=== PATIENT | female | born 1985 | race Caucasian/White ===

== ENCOUNTER 2016-07-29 18:00 | Emergency (ER) | payer SELFPAY ==
--- NOTE | 2016-07-29 18:27 | EDPHY ---
H & P Stated Complaint: RLQ Pain- + preg test-Hx ectopic preg. Time Seen by Provider: 07/29/16 18:10 HPI/ROS: Chief complaint: Abdominal pain HPI: 30-year-old status post ectopic x1 about 2 years ago started having right for pelvic pain earlier today. She took a test which was positive. Her last menstrual. Was 13 months ago. This is 1 her youngest child was born. She is breast feeding. No vaginal bleeding or discharge. No nausea or vomiting or diarrhea. Pain at worst is about a 7/10 down to a 4 on 10 now. She states the pain feels like when she had her ectopic on the left hand side. No fevers or chills. ROS: 10 point Review of Systems is negative except as noted in the HPI. Past medical history: Ectopic Physical exam: Gen: Awake, Alert, No Distress HEENT: Nose: no rhinorrhea Eyes: PERRLA, EOMI Mouth: Moist mucosa Neck: Supple, no JVD Chest: nontender, lungs clear to auscultation Heart: S1, S2 normal, no murmur Abd: mild right adnexal tenderness without guarding. No pain at McBurney's point. No rebound. No other abdominal tenderness. Abdomen is soft, no guarding Back: no CVA tenderness, no midline tenderness Ext: no edema, non-tender Skin: no rash Neuro: CN II-XII intact, Sensation grossly intact, Strength 5/5 in bilateral upper and lower extremities - Personal History LMP (Females 10-55): Current Tetanus/Diphtheria Vaccine: Yes Tetanus Vaccine Date: 2015 - Medical/Surgical History Hx Asthma: No Hx Chronic Respiratory Disease: No Hx Diabetes: No Hx Cardiac Disease: No Hx Renal Disease: No Hx Cirrhosis: No Hx Alcoholism: No Hx HIV/AIDS: No Hx Splenectomy or Spleen Trauma: No Other PMH: DNC TONSILECTOMY SHOULDER SURGERY/DEPRESSION/MIGRAINES/HTN/ANEMIA. Left ectopic 2013- - Social History Smoking Status: Never smoked Constitutional: Initial Vital Signs Temperature (C) 36.9 C 07/29/16 18:06 Heart Rate 84 07/29/16 18:06 Respiratory Rate 16 07/29/16 18:06 Blood Pressure 126/85 H 07/29/16 18:06 O2 Sat (%) 99 07/29/16 18:06 O2 Delivery Mode Room Air Allergies/Adverse Reactions: No Known Allergies Allergy (Verified 07/29/16 18:08) Home Medications: Medication Instructions Recorded NK [No Known Home Meds] 07/29/16 Medical Decision Making - Diagnostics Imaging: Pelvic ultrasound, interpreted by Dr. Btets. There is an IUP demonstrated by a double decidual sac. There is no pole. There is no hemorrhage. This is consistent with 5 week 2 day . This gives a estimated due date of . ED Course/Re-evaluation: Patient with right lower abdominal pain. She has no tenderness at McBurney's point. Abdomen is soft and quite benign. Positive test with an ultrasound that is consistent with an early IUP. Patient does not have rebound or guarding or findings suggestive of an acute appendicitis. And she will be instructed to return emergency department 12-24 hours if symptoms have not improved. Otherwise she will follow up with her OBGYN. - Data Points Laboratory Results: Laboratory Results 07/29/16 18:20 07/29/16 07/29/16 07/29/16 18:20 18:20 18:20 WBC 11.45 10^3/uL H 10^3/uL (3.80-9.50) RBC 4.94 10^6/uL 10^6/uL (4.18-5.33) Hgb 12.8 g/dL g/dL (12.6-16.3) Hct 39.7 % % (38.0-47.0) MCV 80.4 fL L fL (81.5-99.8) MCH 25.9 pg L pg (27.9-34.1) MCHC 32.2 g/dL L g/dL (32.4-36.7) RDW 13.8 % % (11.5-15.2) Plt Count 330 10^3/uL 10^3/uL (150-400) MPV 9.1 fL fL (8.7-11.7) Neut % (Auto) 61.2 % % (39.3-74.2) Lymph % (Auto) 30.9 % % (15.0-45.0) [place] % (Auto) 5.9 % % (4.5-13.0) Eos % (Auto) 1.1 % % (0.6-7.6) Baso % (Auto) 0.6 % % (0.3-1.7) Nucleat RBC Rel Count 0.0 % % (0.0-0.2) Absolute Neuts (auto) 7.00 10^3/uL H 10^3/uL (1.70-6.50) Absolute Lymphs (auto) 3.54 10^3/uL H 10^3/uL (1.00-3.00) Absolute Monos (auto) 0.68 10^3/uL 10^3/uL (0.30-0.80) Absolute Eos (auto) 0.13 10^3/uL 10^3/uL (0.03-0.40) Absolute Basos (auto) 0.07 10^3/uL 10^3/uL (0.02-0.10) Absolute Nucleated RBC 0.00 10^3/uL 10^3/uL (0-0.01) Immature Gran % 0.3 % % (0.0-1.1) Immature Gran # 0.03 10^3/uL 10^3/uL (0.00-0.10) Beta HCG, Quant 3616.30 mIU/mL H mIU/mL (0-4.83) Urine Color PALE YELLOW Urine Appearance HAZY Urine pH 5.0 (5.0-7.5) Ur Specific [place] 1.008 (1.002-1.030) Urine Protein NEGATIVE (NEGATIVE) Urine Ketones TRACE H (NEGATIVE) Urine Blood 2+ H (NEGATIVE) Urine Nitrate NEGATIVE (NEGATIVE) Urine Bilirubin NEGATIVE (NEGATIVE) Urine Urobilinogen NEGATIVE EU EU (0.2-1.0) Ur Leukocyte Esterase NEGATIVE (NEGATIVE) Urine RBC 1-3 /hpf /hpf (0-3) Urine WBC 1-3 /hpf /hpf (0-3) Ur Epithelial Cells 1+ /lpf /lpf (NONE-1+) Urine Bacteria 1+ /hpf H /hpf (NONE SEEN) Urine Mucus TRACE /lpf /lpf (NONE-1+) Urine Glucose NEGATIVE (NEGATIVE) Departure - Departure Disposition: Home, Routine, Self-Care Clinical Impression: , Abdominal pain Condition: Good Instructions: (ED), Abdominal Pain in (ED) Additional Instructions: Follow-up with your OBGYN in 2-3 days for re-evaluation. If pain is worsening in the next 12 hours return to the emergency department for further evaluation. Referrals: CALDWELL,UNKNOWN [Other] - As per Instructions
[2016-07-29 18:34] LABS: % IMMATURE GRANULYOCYTES 0.3 % (0.0-1.1); ABSOLUTE IMMATURE GRANULOCYTES 0.03 10^3/uL (0.00-0.10); ADD DIFF? NO; ADD MORPH? NO; ADD SCAN? NO; ATYPICAL LYMPHOCYTE FLAG 20 (0-99); FRAGMENT RBC FLAG 0 (0-99); HEMATOCRIT 39.7 % (38.0-47.0); HEMOGLOBIN 12.8 g/dL (12.6-16.3); LEFT SHIFT FLG 0 (0-99); LIPEMIA HEMOLYSIS FLAG 80 (0-99); MEAN CELL HEMOGLOBIN 25.9 pg (27.9-34.1); MEAN CELL HEMOGLOBIN CONCENTR. 32.2 g/dL (32.4-36.7); MEAN CELL VOLUME 80.4 fL (81.5-99.8); MEAN PLATELET VOLUME 9.1 fL (8.7-11.7); PLATELET CLUMPS FLAG 20 (0-99); PLATELET COUNT 330 10^3/uL (150-400); RED BLOOD CELL COUNT 4.94 10^6/uL (4.18-5.33); RED CELL DISTRIBUTION WIDTH 13.8 % (11.5-15.2)
[2016-07-29 18:43] LABS: COLOR PALE YELLOW; LEUKOCYTE ESTERASE,URINE NEGATIVE (NEGATIVE); NITRITE,URINE NEGATIVE (NEGATIVE)
[2016-07-29 18:54] LABS: BACTERIA 1+ /hpf (NONE SEEN); MUCUS TRACE /lpf (NONE-1+)
[2016-07-29 20:23] VITALS: BP 132/84; PULSE 86; RESP 18; TEMP 98.2; O2SAT 98
== END 2016-07-29 20:23 | disposition home or self-care (01) ==
DX: O26.891 Other specified pregnancy related conditions, first trimester (principal); R10.2 Pelvic and perineal pain; I10 Essential (primary) hypertension; Z3A.01 Less than 8 weeks gestation of pregnancy

== ENCOUNTER → 2017-07-28 | Outpatient (CLI) | payer MEDICAID | LOC: FIMAGING 13:28 | PROVIDERS: ATTEND Obstetrics & Gynecology | DX: O09.291 Supervision of pregnancy with other poor reproductive or obstetric history, first trimester (principal); Z3A.13 13 weeks gestation of pregnancy ==

== ENCOUNTER → 2017-09-18 | Outpatient (CLI) | payer MEDICAID | LOC: FIMAGING 09:23 | PROVIDERS: ATTEND Obstetrics & Gynecology | DX: O09.292 Supervision of pregnancy with other poor reproductive or obstetric history, second trimester (principal); O26.22 Pregnancy care for patient with recurrent pregnancy loss, second trimester; O34.219 Maternal care for unspecified type scar from previous cesarean delivery; Z87.59 Personal history of other complications of pregnancy, childbirth and the puerperium; Z82.79 Family history of other congenital malformations, deformations and chromosomal abnormalities; Z3A.20 20 weeks gestation of pregnancy ==

== ENCOUNTER 2018-01-24 21:10 | Observation (INO) | payer MEDICAID | END 2018-01-24 22:20 | disposition home or self-care (01) | LOC: FLD 21:10 | PROVIDERS: ADMIT Obstetrics & Gynecology; ATTEND Obstetrics & Gynecology | DX: Z34.83 Encounter for supervision of other normal pregnancy, third trimester (principal); Z3A.39 39 weeks gestation of pregnancy | CPT/HCPCS: G0378 ==

== ENCOUNTER 2018-01-30 22:06 | Inpatient (IN) | payer MEDICAID ==
[2018-01-30] MEDS ORDERED: OLIVE OIL 118 ML BTL MISC PRN (22:44)
[2018-01-30] MEDS ORDERED: OXYTOCIN/RINGERS LACTATE 1,000 ML IV PRN (22:44)
[2018-01-30] MEDS ORDERED: AMMONIA AROMATIC 1 EACH AMP IH PRN (22:44)
[2018-01-30] MEDS ORDERED: IBUPROFEN 600 MG TAB PO PRN (22:44)
[2018-01-30] MEDS ORDERED: AMPICILLIN SODIUM 2 GM in NS 100 ML IV ONE (22:44)
[2018-01-30] MEDS ORDERED: MISOPROSTOL 200 MCG TAB PO PRN (22:44)
[2018-01-30] MEDS ORDERED: EPSOM SALT 454 GM TP PRN (22:44)
[2018-01-30] MEDS ORDERED: LR 1,000 ML IV PRN (22:44)
[2018-01-30] MEDS ORDERED: LIDOCAINE 1% 300 MG/30 ML SDV SC PRN (22:44)
[2018-01-30] MEDS ORDERED: TERBUTALINE SULFATE 1 MG/ML VIAL IV PRN (22:44)
[2018-01-30 23:02] LABS: PLATELET COUNT 228 10^3/uL (150-400)
[2018-01-30] MEDS ORDERED: LR 500 ML IV PRN (23:28)
[2018-01-30] MEDS ORDERED: OXYTOCIN/RINGERS LACTATE 500 ML IV SCH (23:30)
--- NOTE | 2018-01-30 23:50 | GHP ---
DATE OF ADMISSION: 01/30/2018 ADMITTING DIAGNOSIS: Intrauterine at 40 weeks' gestation with spontaneous rupture of the m embranes and spontaneous labor. HISTORY OF PRESENT ILLNESS: Yoko is a 32-year-old 9, para 3-0-5-3 with a last menstrual pe riod of 04/15/2017, and an EDC of 01/30/2017, which was confirmed by a 9-week ultrasound. She has león d good care at [facility] since registration at 9 weeks' gestation, and she has ad vanced to 40 weeks' gestation. At approximately 8 p.m. this evening, she reported a spontaneous gush of clear fluid and began having some mild irregular contractions every 7-10 minutes. The fluid cont inued, was clear in nature. Baby had good movement and she had minimal vaginal bleeding. When she p resented to labor and delivery, heart tones were in the 130s, reactive, moderate variability, c ategory 1. She is yesy irregularly. She is grossly ruptured for clear fluid, and her cervix is approximately 3, 60%, -2. Baby is cephalic. The patient is group B strep positive and she will b e admitted for active labor and GBS prophylaxis. The patient's risk factors include obesity . She has prepregnancy BMI of 32. She had an early 1 hour GTT which was normal and her repeat 1 kanika r in 3rd trimester was also normal. She has a history of anxiety and depression. She is doing well this . She has a history of 2 full-term vaginal deliveries and then she had a wit h her 3rd child due to caudal regression syndrome, renal agenesis, and a suspected true knot in the u mbilical cord. She desires to have a trial of labor with this baby. She also has a history of a rup tured left ectopic , status post salpingectomy, history of migraines, B12 deficiency, and po stpartum preeclampsia. She has also thalassemia carrier. Carrier. Her is negative. PAST OBSTETRICAL HISTORY: The patient is a 9, para 3-0-5-3. In January 2006, she had a vi able male, 5 pounds 12 ounces, vaginal delivery. No complications, was GBS positive. In January, viable female, 7 pounds 7 ounces, full-term, spontaneous labor, also GBS positive. June of 2011, she had a spontaneous at 6 weeks. February of 2013, missed , had a dilatati on and curettage at 6 weeks. February 2014, she had a ruptured ectopic and a left salpingec loni. November of 2013, a 4-week SAB. Then, in June of 2015, she had her for her baby wit h caudal regression syndrome. Then, in July of 2016, she had an early SAB, and then this is her 9th . PAST GYNECOLOGICAL HISTORY: She had menarche at age 11. She has irregular cycles every 18-36 days. They last 7-10 days. This was an unplanned but welcomed . No history of STDs or abnormal Paps. The Pap in this showed atypical cells, but negative HPV. She will have a repeat pos tpartum. PAST MEDICAL HISTORY: Significant for migraines, depression, and anxiety. PAST SURGICAL HISTORY: Significant for her laparoscopic left salpingectomy and her . SOCIAL HISTORY: She is . She lives with her , Connor, and her 3 children. She works as a grades 1 through 5 teacher. She denies tobacco and alcohol use. She has admitted to THC use for migraine s in the past, none in this . FAMILY HISTORY: Her mother has heart disease, had an MN. Maternal grandfather also had heart diseas e, triple bypass. Mom and paternal grandmother have hypertension, hypercholesterolemia. Brother has significant asthma. Mother and maternal grandmother have thyroid dysfunction. Her daughter has rig ht renal agenesis. ALLERGIES: She has no known drug allergies. MEDICATIONS: Her only medications in this are vitamins, baby aspirin, and DHA. LABORATORY DATA: She is O positive. Antibody negative. RPR nonreactive. Rubella immune. Hepatiti s negative. HIV negative. She is an alpha thalassemia carrier. Negative for SMA, fragile X, and cy stic fibrosis. Baseline PIH labs were normal. 24 hour urine was 261. Verifi was negative. AFP was negative. One hour GGT 102. The patient was not tested for GBS in this . She has been pos itive for all of her other pregnancies and wishes to be treated. OBJECTIVE: Today, her blood pressure on admission was 130s over 80s. heart tones are in the 1 40s, reactive, moderate variability, category 1. She is yesy irregularly. She is grossly rup tured. Her cervix is 3, 60%, -2. Baby is cephalic. ASSESSMENT AND PLAN: A 32-year-old, 9, para 3-0-5-3, who is 40 weeks today with spontaneous rupture of membranes. The patient is admitted and desires a trial of labor after section. The patient was admitted, started on ampicillin for GBS prophylaxis. She will have expectant labor m anagement for now. She may need Pitocin augmentation. status is reassuring. /[id number]/MODL
[2018-01-31] MEDS: AMPICILLIN SODIUM 1 GM in NS 100 ML IV SCH ×3 (03:30→18:31)
[2018-01-31] MEDS ORDERED: HYDROCORTISONE 0.5% CREAM TP PRN (05:40)
[2018-01-31] MEDS ORDERED: SIMETHICONE 80 MG TAB CHEW PO PRN (05:40)
[2018-01-31] MEDS ORDERED: HYDROCODONE/APAP 5/325 TAB PO PRN (05:40)
[2018-01-31] MEDS ORDERED: DOCUSATE SODIUM 100 MG CAP PO PRN (05:40)
--- NOTE | 2018-01-31 05:46 | OBDEL ---
Info Type: Vaginal Presentation at Delivery: Vertex L&D Analgesia/Anesthesia Type: None GBS+: Yes Antibiotic Used for + GBS: Ampicillin Intrapartum Medications: Generic Name Dose Route Start Last Admin Trade Name Freq PRN Reason Stop Dose Admin Ampicillin Sodium 1 gm/ Sodium 100 mls @ 200 mls/hr 01/31/18 02:46 01/31/18 03:30 Chloride IV 03/02/18 02:45 100 mls Q4H TANYA Administration Protocol Oxytocin/Lactated Ringer's 1,000 mls @ 0 mls/hr 01/30/18 22:44 01/31/18 05:37 Pitocin 20 Units/Lr (Premix) IV 1,000 mls PRN PRN Administration Post bleeding As Directed Discontinued Medications Generic Name Dose Route Start Last Admin Trade Name Freq PRN Reason Stop Dose Admin Ampicillin Sodium 2 gm/ Sodium 110 mls @ 220 mls/hr 01/30/18 22:44 01/30/18 23:14 Chloride IV 01/30/18 23:13 110 mls ONCE ONE Administration Protocol - Hospital Course Intrapartum: 01/31/18 05:43 Pt presented with SROM, +GBS, contractions became regular and intense after the 2nd dose of Ampicillin. She progressed spontaneously and Indications for Delivery: Spontaneous Labor, SROM Vaginal Delivery - Delivery Provider Delivery Physician/CNM: Radha Lion - Labor and Delivery Onset of Contractions Date: 01/30/18 Onset of Contractions Time: 20:30 Onset of Contractions Type: Spontaneous Rupture of Membranes Date: 01/30/18 Rupture of Membranes Time: 20:30 Rupture of Membranes Type: Spontaneous Amniotic Fluid Color: Clear Dilation Complete Date: 01/31/18 Dilation Complete Time: 05:20 Placenta Delivery Date: 01/31/18 Placenta Delivery Time: 05:31 Total Hours of Labor: 9 Laceration: Other (Specify) (none, intact perineum) Vaginal Sponge Count Correct: Yes Vaginal Needle Count Correct: Yes Vaginal Sweep Performed: Yes EBL: 200 Delivery Events: None - Medications Labor Augmentation/Induction Methods Used: None Data FELICIANO: 01/30/18 Gestational Age: 40 week(s) and 1 day(s) Hernandez Delivery Date: 01/31/18 Delivery Time: 05:26 Sex of Infant: Female Score (1 Min): 8 Score (5 Min): 9 ICD10 Worksheet Patient Problems: Problems Problem Status Onset (spontaneous vaginal delivery) Acute , delivered Acute Hemoperitoneum due to rupture of left tubal ectopic Acute S/P laparoscopy Acute - ICD10 Problem Qualifiers (1) (spontaneous vaginal delivery) (2) , delivered
--- NOTE | 2018-01-31 13:17 | OBPP ---
Progress Note Assessment/Plan: Assessment: PPD 1/2 s/p early am mild anemia on admit Plan: routine care, iron daily 01/31/18 13:14 Subjective/ Course: 01/31/18 13:15 Pt doing well. Baby has latched couple times. mild cramping when BF, bld is moderate. urinating fine. So happy to have successful Objective: 01/30/18 22:15 01/30/18 22:15 Patient ABO/Rh O POSITIVE 01/30/18 22:15 Uric Acid 7.0 mg/dL (2.5-6.8) H 01/30/18 22:15 Total Bilirubin 0.6 mg/dL (0.1-1.4) 01/30/18 22:15 Conjugated Bilirubin 0.1 mg/dL (0.0-0.5) 01/30/18 22:15 Unconjugated Bilirubin 0.5 mg/dL (0.0-1.1) 01/30/18 22:15 AST 18 IU/L (14-46) 01/30/18 22:15 ALT 24 IU/L (9-52) 01/30/18 22:15 Lactate Dehydrogenase 449 IU/L (313-618) 01/30/18 22:15 Temp Pulse Resp BP Pulse Ox 36.5 C 75 16 134/80 H 01/31/18 07:37 01/31/18 07:37 01/31/18 07:37 01/31/18 07:37 Uterine Position/Fundal Height: At Umbilicus Uterine Tone: Firm Physical Exam - Physical Exam Abdomen: non-tender, soft, other (FF at umb) Extremities: non-tender, pedal edema (mild) Skin: normal color, warm/dry Neuro/Psych: alert, normal mood/affect
[2018-01-31] MEDS: ACETAMINOPHEN 325 MG TAB PO SCH ×4 (16:57→23:04)
[2018-01-31] MEDS: IBUPROFEN 600 MG TAB PO SCH ×3 (16:57→23:04)
[2018-01-31] MEDS: IRON POLYSAC/IRON HEME 28 MG TAB PO SCH (18:25)
[2018-02-01] MEDS: IBUPROFEN 600 MG TAB PO SCH ×2 (05:15→12:15)
[2018-02-01] MEDS: ACETAMINOPHEN 325 MG TAB PO SCH ×2 (05:16→12:15)
[2018-02-01 09:00] VITALS: BP 124/83
--- NOTE | 2018-02-01 11:40 | OBPP ---
Progress Note Assessment/Plan: Assessment: 32 y/o PPD #1 s/p doing well. Plan: D/c home today with Rx Ibuprofen and Bifera. Follow-up @ [facility] 4 and 6 weeks. 02/01/18 11:39 Subjective/ Course: 01/31/18 13:15 Pt doing well. Baby has latched couple times. mild cramping when BF, bld is moderate. urinating fine. So happy to have successful 02/01/18 11:37 Pt is doing well. Her cramping is much better now on Ibuprofen and Tylenol. Min lochia, ambulating voiding and + BM without difficulty. BF is going well and they are ready to d/c home. Objective: 01/30/18 22:15 01/30/18 22:15 Patient ABO/Rh O POSITIVE 01/30/18 22:15 Uric Acid 7.0 mg/dL (2.5-6.8) H 01/30/18 22:15 Total Bilirubin 0.6 mg/dL (0.1-1.4) 01/30/18 22:15 Conjugated Bilirubin 0.1 mg/dL (0.0-0.5) 01/30/18 22:15 Unconjugated Bilirubin 0.5 mg/dL (0.0-1.1) 01/30/18 22:15 AST 18 IU/L (14-46) 01/30/18 22:15 ALT 24 IU/L (9-52) 01/30/18 22:15 Lactate Dehydrogenase 449 IU/L (313-618) 01/30/18 22:15 Temp Pulse Resp BP Pulse Ox 36.2 C 74 16 124/83 H 97 02/01/18 08:00 02/01/18 08:00 02/01/18 08:00 02/01/18 08:00 01/31/18 20:00 Uterine Position/Fundal Height: Umbilicus -2 Uterine Tone: Firm Physical Exam - Physical Exam General Appearance: alert, no apparent distress Neck: non-tender, full range of motion, supple Respiratory: chest non-tender, lungs clear, normal breath sounds Cardiac/Chest: regular rate, rhythm Abdomen: normal bowel sounds Extremities: swelling (no), Deysi's sign (neg)
--- NOTE | 2018-02-01 11:40 | OBGCSDC ---
General Delivery Information - General Info : 9 Para: 4 Abortions: 3 Type: Vaginal L&D Analgesia/Anesthesia Type: None Admission Date: 01/30/18 Labs: Patient ABO/Rh O POSITIVE 01/30/18 22:15 Hct 35.1 % (38.0-47.0) L 01/30/18 22:15 - Hospital Course Intrapartum: 01/31/18 05:43 Pt presented with SROM, +GBS, contractions became regular and intense after the 2nd dose of Ampicillin. She progressed spontaneously and : 01/31/18 13:15 Pt doing well. Baby has latched couple times. mild cramping when BF, bld is moderate. urinating fine. So happy to have successful 02/01/18 11:37 Pt is doing well. Her cramping is much better now on Ibuprofen and Tylenol. Min lochia, ambulating voiding and + BM without difficulty. BF is going well and they are ready to d/c home. Vaginal - Delivery Provider Delivery Physician/CNM: Radha Lion - Diagnosis Labor: Spontaneous Rupture of Membranes Type: Spontaneous Amniotic Fluid Color: Clear Laceration: Other (Specify) (none, intact perineum) Delivery Events: None - Delivery EBL: 200 [place] Data FELICIANO: 01/30/18 Gestational Age: 40 week(s) and 2 day(s) Hernandez Delivery Date: 01/31/18 Delivery Time: 05:26 Sex of : Female Weight (gm): 3502 g Score (1 Min): 8 Score (5 Min): 9 Discharge Information - Discharge Information Prescriptions: Ibuprofen [Motrin (*)] 600 mg PO Q6H #30 tab Iron Polysacch/Iron Heme Polyp [Bifera] 28 mg PO DAILY #30 tab Condition: Good Instruction/Follow Up: Four Weeks, Six Weeks
[2018-02-01] MEDS: IRON POLYSAC/IRON HEME 28 MG TAB PO SCH (12:38)
== END 2018-02-01 12:15 | disposition home or self-care (01) | DRG 560 ==
LOC: FLD 22:06 → OBSVTOIN 22:46 → FOB 01-31 08:31
PROVIDERS: ADMIT Obstetrics & Gynecology; ATTEND Obstetrics & Gynecology
PROC: 10E0XZZ Delivery of Products of Conception, External Approach (ICD-10-PCS; principal; 2018-01-31)
DX: O34.219 Maternal care for unspecified type scar from previous cesarean delivery (principal); O99.820 Streptococcus B carrier state complicating pregnancy; Z37.0 Single live birth; Z3A.40 40 weeks gestation of pregnancy
CPT/HCPCS: J0290; J2590